=== PATIENT | female | born 1990 | race Two or more races ===

== ENCOUNTER 2022-08-24 09:12 | Emergency (ER) | payer MEDICAID, OTHER ==
[~2022-08-24] VITALS: Ht 152.4 cm; Wt 59.1 kg
[2022-08-24 11:00] LABS: Urine Bacteria FEW /hpf (None Seen); Urine Blood 2+ /uL (Negative); Urine Mucus MODERATE (None Seen); Urine Specific Gravity 1.032 (1.001-1.035); Urine WBC 46 /hpf (0 - 5)
[2022-08-24 13:41] VITALS: BP 116/71
[2022-08-24] MEDS ORDERED: CEPH-510 PO (14:50)
[2022-08-24] MEDS ORDERED: ACYC-161 PO (14:50)
[2022-08-24] MEDS ORDERED: IBUP600T28 PO (14:50)
[2022-08-24] MEDS ORDERED: cefTRIAXone SOD 1,000 MG VL IM ONE (15:00)
[2022-08-24] MEDS ORDERED: METR500T PO (15:26)
== END 2022-08-24 14:55 | disposition home or self-care (01) ==
LOC: ER 09:12
DX: N39.0 Urinary tract infection, site not specified (principal); A60.00 Herpesviral infection of urogenital system, unspecified; N76.0 Acute vaginitis; B96.89 Other specified bacterial agents as the cause of diseases classified elsewhere; Z79.1 Long term (current) use of non-steroidal anti-inflammatories (NSAID); Z79.899 Other long term (current) drug therapy; Z88.7 Allergy status to serum and vaccine
CPT/HCPCS: 81001; 87070; 87210; 87491; 87591; 96372; 99283; J0696; 87088; 87186